=== PATIENT | female | born 1940 | race Caucasian/White ===

== ENCOUNTER 2020-07-24 10:55 | Outpatient (CLI) | payer BC, SELFPAY ==
--- NOTE | ~2020-07-24 | XR_ITS ---
XR abdomen/kub 1V 07/24/2020 11:18 Indication: Left ureteral stone Procedure: KUB Comparison: No prior studies for comparison. Findings: There are extensive postsurgical changes in the abdomen and pelvis. Bowel gas pattern is no nobstructive with moderate colonic fecal loading. There are calcifications in the left pelvis in the left mid abdomen which are indeterminate for ureteral stone. There is severe lumbar spondylosis with dextroscoliosis. There are vertebroplasty changes at L4. Impression: 1: Left abdominal and pelvic calcifications, indeterminate for ureteral stone. Recommend correlation with CT. Reviewed, dictated and finalized at location B. Impression: 1: Left abdominal and pelvic calcifications, indeterminate for ureteral stone. Recommend correlation with CT.
== END 2020-07-24 10:56 | disposition home or self-care (01) ==
LOC: ANHIMG 11:00
PROVIDERS: Visit Provider Urology
DX: N20.1 Calculus of ureter (principal)
CPT/HCPCS: 74018

== ENCOUNTER 2020-09-02 09:31 | Outpatient (CLI) | payer BC, SELFPAY ==
--- NOTE | ~2020-09-02 | US_ITS ---
EXAMINATION: US renal BI DATE: 09/02/2020 10:15 INDICATION: Left ureteral stone. TECHNIQUE: Multiple ultrasound grayscale images of the kidneys were obtained. COMPARISON: None. FINDINGS: The right kidney measures 7.1 x 3.2 x 3.8 cm. The left kidney measures 8.4 x 6.0 x 5.5 cm. The kidney s demonstrate normal parenchymal echogenicity. There is mild left hydronephrosis. The bladder is norm al. IMPRESSION: 1. Mild left hydronephrosis. 2. Moderate atrophy of right kidney and mild atrophy of left kidney. Reviewed, dictated and finalized at location B.
== END 2020-09-02 09:32 | disposition home or self-care (01) ==
PROVIDERS: Visit Provider Urology
DX: N20.1 Calculus of ureter (principal); N13.30 Unspecified hydronephrosis; N26.1 Atrophy of kidney (terminal)
CPT/HCPCS: 76775